=== PATIENT | female | born 1955 | race Caucasian/White ===

== ENCOUNTER 2024-09-01 09:07 | Outpatient (AMB) | payer MEDICARE, OTHER, SELFPAY ==
[2024-09-01 09:09] VITALS: BP 122/82; PULSE 111; TEMP 36.4; O2SAT 98
--- NOTE | 2024-09-01 09:09 | AM.OFFWIN_ITS ---
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 Tobacco Use Status: Never used Tobacco Allergies codeine Allergy (Mild, Verified 09/01/24 09:39) Rash ibuprofen Allergy (Mild, Verified 09/01/24 09:39) Rash sulfamethoxazole [From Bactrim] Allergy (Mild, Verified 09/01/24 09:39) Rash trimethoprim [From Bactrim] Allergy (Mild, Verified 09/01/24 09:39) Rash Medication List - Last Reconciled 09/01/24 by MESFIN Cardenas-BC estradiol (Yuvafem) 10 mcg vaginal 2XW folic acid 1 mg PO DAILY levothyroxine 112 mcg PO DAILY methotrexate sodium mg PO omeprazole 20 mg PO DAILY Do you need a note to return to daycare/school/sports/work: No HPI HPI Comments History of Present Illness Details History of Present Illness - The patient is a 68-year-old female pr esenting with suspected urinary tract infection. - Symptoms initiated at 5:00 AM on the d ay of presentation, with burning, frequency, and urgency during urination. - Reports past episodes of urinary tract infections, last documented several years ago. - Denies hematuria, discharge, nausea, v omiting, or fever; reports minor chills. - No pertinent back or abdominal pain no ronna, aside from mild lower abdominal discomfort. - Prior medical event of kidney stone 11 years prior. Review of Systems - : Reports burning sensation, increas ed frequency, and urgency in urination. - General: Denies fever, but reports sli ght chills. - GI: Denies nausea, vomiting. - Musculoskeletal: Denies back pain. Physical Exam General: Well developed, well nourished, in no acute distress. Appears stated age. Head: Normocephalic, atraumatic. Eyes: Pupils are equal, round and reactive to light and accommodation. Conjunctivae are clear. Lungs: Clear to auscultation bilaterally. No rales, rhonchi or wheeze noted. Good air flow in all andrews. Heart: Regular rate and rhythm. Heart rate is elevated, in the 90s. No murmurs, click, rubs or gallops are noted. Abdomen: The abdomen is soft, with no masses or organomegaly noted. + suprapubic tenderness. No CVAT bilat Extremities: No clubbing, cyanosis nor edema is noted. Psych: Mood and affect appropriate. Results - Urinalysis: Positive for leukocytes, p ositive for blood, negative for nitrites, negative for glucose. - Urinalysis: Positive for leukocytes, positive for blood, negative for nitrites, negative for glucose. Urine sent for culture. Discussion Notes During the visit, I discussed the diagnosis of a urinary tract infection with the patient, based on her symptoms and urinalysis results indicating leukocytes and blood presence. I recommended initiating treatment with cefuroxime, an antibiotic taken twice daily for five days. I emphasized the importance of completing the full course of antibiotics even if symptoms improve after the first doses. We discussed side effects of the medication, particularly gastrointestinal upset, which can be mitigated by taking the medication with food. Should her symptoms worsen or if she experiences adverse effects such as vomiting, I advised immediate reevaluation. I also offered pyridium as an adjunct for symptomatic relief while the antibiotics take effect, and informed the patient about the possibility of orange urine discoloration should she use it. Consent for treatment was obtained, and I reassured her that if our office does not contact her post urine culture, the prescribed antibiotic is appropriate. Follow-up instructions and hydration guidance were provided to address her symptoms effectively. Assessment and Plan 1. Urinary Tract Infection - Prescribed cefuroxime 500 mg BID for 5 days. - Emphasized need to complete antibiotic therapy. - Recommended pyridium for discomfort re lief. - Advised hydration and rest. - Planned for reevaluation if symptoms w orsen or there's intolerance to medication. *of note, Bennett let me know there was not enough urine for Culture after pt left. Plan to call her and ask her to go to lab to submit. Patient Instructions - Take cefuroxime as prescribed, 500 mg twice a day, after meals. - Drink plenty of water to stay hydrated . - Rest as much as possible to aid recove ry. - Finish all antibiotics even if you fee l better. - Use pyridium for pain; your urine may turn orange. - Return to us if you vomit or symptoms do not improve. - Follow up if no contact is made regard ing urine culture. Consent Patient was informed and verbally consented to the use of an ambient scribe for clinic note documentation during this visit. [facility] Social History Patient Tobacco Use Status: Never used Tobacco Physical Exam Vital Signs: Last Vital Signs Temp 97.5 F 09/01/24 09:09 Pulse 111 H 09/01/24 09:09 BP 122/82 09/01/24 09:09 Pulse Ox 98 09/01/24 09:09 Oxygen Delivery Method Room Air 09/01/24 09:09 BMI result Body Mass Index 30.0 Results AMB Urinalysis, Automated UA Leukoctes 500 Miracle/uL Last Edit by Marck Gibson CMA on 09/01/24 09:3 1 UA Nitrite Negative Last Edit by Marck Gibson CMA on 09/01/24 09:31 UA Urobilinogen 0.2 mg/dL Last Edit by Marck Gibson CMA on 09/01/24 09 :31 UA Protein 0 mg/dL Last Edit by Marck Gibson CMA on 09/01/24 09:31 UA pH 6.0 Last Edit by Marck Gibson CMA on 09/01/24 09:31 UA Blood 200 Micah/uL Last Edit by Marck Gibson CMA on 09/01/24 09:31 UA Specific [place] 1.010 Last Edit by Marck Gibson CMA on 09/01/24 09:31 UA Ketone Negative Last Edit by Marck Gibson CMA on 09/01/24 09:31 UA Bilirubin 0 mg/dL Last Edit by Marck Gibson CMA on 09/01/24 09:31 UA Glucose 0 mg/dL Last Edit by Marck Gibson CMA on 09/01/24 09:31 Results Reviewed Results Reviewed: Laboratory Last Values Urine pH (Auto) 6.0 09/01/24 09:30 Specific [place] (Auto) 1.010 09/01/24 09:30 Urine Protein (Auto) 0 mg/dL 09/01/24 09:30 Glucose (UA)(Auto) 0 mg/dL 09/01/24 09:30 Urine Ketones (Auto) Negative 09/01/24 09:30 Urine Blood (Auto) 200 Micah/uL 09/01/24 09:30 Urine Nitrite (Auto) Negative 09/01/24 09:30 Urine Bilirubin (Auto) 0 mg/dL 09/01/24 09:30 Urine Urobilinogen (Auto) 0.2 mg/dL 09/01/24 09:30 Leukocyte Esterase (Auto) 500 Miracle/uL 09/01/24 09:30 Assessment & Plan Assessment & Plan (1) UTI (urinary tract infection): Code(s): N39.0 - Urinary tract infection, site not specified Qualifiers: Urinary tract infection type: acute cystitis Hematuria presence: with hematuria Qualified Code(s): N30.01 - Acute cystitis with hematuria Plan . Orders: Orders AMB Urinalysis Automated Today Z13.9 - Encounter for screening, unspecified Urine Culture Today N39.0 - Urinary tract infection, site not specified Medications: New cefuroxime axetil 500 mg PO BID 10 tabs 0RF phenazopyridine (Pyridium) 100 mg PO TID PRN 6 tabs 0RF pain Patient Instructions: What is the urinary tract? This is the group of organs in the body that handle urine (figure 1). It includes the: ?Kidneys ? These are 2 monzon-shaped organs that filter the blood to make urine. ?Bladder ? This is a balloon-shaped organ that stores urine. ?Ureters ? These are 2 tubes that carry urine from the kidneys to the bladder. ?Urethra ? This is the tube that carries urine from the bladder to the outside of the body. What are urinary tract infections? Urinary tract infections, or UTIs, are infections that affect either the bladder or the kidneys: ?Bladder infections are more common than kidney infections. They happen when bacteria get into the urethra and travel up into the bladder. The medical term for bladder infection is cystitis. Most of the time, when people talk about a UTI, they mean a bladder infection. ?Kidney infections happen when the bacteria travel even higher, up into the kidneys. The medical term for kidney infection is pyelonephritis. This is more serious than a bladder infection, and can lead to other serious problems if it is not treated properly. Both bladder and kidney infections are more common in females than males. The risk of UTIs is also higher in people who have a urinary catheter. A catheter is a thin, flexible tube that drains urine from the bladder. It might be used in people who are in the hospital and cannot urinate the normal way. What are the symptoms of a bladder infection? The symptoms include: ?Pain or a burning feeling when you urinate ?The need to urinate often ?The need to urinate suddenly or in a hurry ?Blood in the urine What are the symptoms of a kidney infection? The symptoms of a kidney infection can include the same urinary symptoms that happen with a bladder infection. In addition, kidney infections can cause: ?Fever ?Back pain ?Nausea or vomiting Will I need tests? Maybe. If you think that you might have a UTI, call your doctor or nurse. Sometimes, they can tell if you have one just by learning about your symptoms. Your doctor or nurse might do a simple urine test in the office. They might also do a more involved urine test to check for bacteria. How are UTIs treated? Most are treated with antibiotic pills. These work by killing the germs that cause the infection. ?If you have a bladder infection, you will probably need to take antibiotics for 3 to 7 days. ?If you have a kidney infection, you will probably need to take antibiotics for longer. Some people need to take them for 10 days. If you have a kidney infection, it's also possible that you will need to be treated in the hospital. Your symptoms should begin to improve within a day of starting antibiotics. But you should finish all of the antibiotic pills. Otherwise, the infection might come back. If needed, you can also take a medicine to numb your bladder. This medicine eases the pain caused by UTIs. It also reduces the need to urinate. What if I get bladder infections a lot? First, check with your doctor or nurse to make sure that you are really having bladder infections. The symptoms of bladder infection can be caused by other things. Your doctor or nurse will want to see if those problems might be causing your symptoms. If your doctor confirms that you are having repeated infections, there are things you can do to keep from getting more infections. These include: ?Drinking more fluid ? This can help prevent bladder infections. ?Vaginal estrogen ? If you have already been through menopause, your doctor might suggest this. Vaginal estrogen comes in a cream or a flexible ring that you put into your vagina. It can help prevent bladder infections. Other things that might help: ?Avoid spermicides (sperm-killing creams or gels) ? Spermicide is a form of control. It seems to increase the risk of bladder infections in some females, especially when used with a diaphragm. If you use spermicide and get a lot of bladder infections, you might want to try switching to a different form of control. ?Urinate right after sex ? Some doctors think this helps, because it helps flush out germs that might get into the bladder during sex. There is no proof it works, but it also cannot hurt. If you get a lot of bladder infections, and the above methods have not helped, talk to your doctor about what else you can do to prevent infection. Taking an antibiotic every day or after sex can help prevent bladder infections. But long- term use of antibiotics has downsides, so doctors usually suggest trying other things first, such as: ?Methenamine (brand name: Hiprex) ? This is a pill you take every day. It changes your urine to make it harder for bacteria to grow. It works almost as well as antibiotics to prevent bladder infections. ?Cranberry juice or other cranberry products ? These might help prevent bladder infections. But doctors do not know what the best dose is. Can other products prevent bladder infections? People often wonder about other natural products that claim to help prevent bladder infections. These include probiotic pills, vitamin C, and D-mannose. There is not good evidence that these things work. However, there is also no clear evidence that they are harmful. If you have questions about these or other products, talk with your doctor or nurse. Coding Level of Care Code Est Pt Level 3 (55073) Diagnoses Acute cystitis with hematuria N30.01 Urinary tract infection type: acute cystitis Hematuria presence: with hematuria
--- OUTSIDE RECORDS SUMMARY | 2024-09-01 09:09 | XMS_ITS | Encounter Summary ---
Author Organization [facility] Address [address] [place] [address] Care Team Providers Care Instrument Mechanic Name Role Phone Diogo Gray Primary Care Provider [phone] Encounter Details Date Type Department Care Team (Late st Contact Info) Description 07/21/2024 Results Follow-Up [facility] [address] [place] [id number] Coastal/Harbor Defense Officer: Jose Luis Harris MD [address] [place] [address] [phone] Social History Tobacco Use Types Packs/Day Years Used Date Smoking Tobacco: Never Passive Smoke Exposure: Past Smokeless Tobacco: Never Alcohol Use Standard Drinks/Week Comments Not Currently 0 (1 standard drink = 0.6 oz pur e alcohol) Comments Unknown Sex and Gender Information Value Date Recorded Sex Assigned at Female 06/20/2021 11:14 AM EDT Legal Sex Female 10:50 AM EDT Gender Identity Female 06/20/2021 11:14 AM EDT Sexual Orientation Choose not to disclose 2021 11:14 AM EDT documented as of this encounter Plan of Treatment Upcoming Encounters Date Type Department Care Team (Late st Contact Info) Description 01/29/2025 4:00 PM EST Follow-Up [facility] [address] [place] [address] [phone] Coastal/Harbor Defense Officer: Jose Luis Harirs MD [address] [place] [address] [phone] documented as of this encounter Visit Diagnoses Not on filedocumented in this encounter Care Teams Instrument Mechanic Relationship Specialty Start Date End Date Diogo Gray [address] [place] [address] PCP - General Internal Medicine 09/10/20 documented as of this encounter
[2024-09-01 09:46] VITALS: PULSE 90
== END 2024-09-01 09:56 | disposition home or self-care (01) ==
PROVIDERS: Visit Provider Nurse Practitioner Family
DX: Z13.9 Encounter for screening, unspecified (principal); N30.01 Acute cystitis with hematuria

== ENCOUNTER 2024-09-01 09:07 | Outpatient (REF) | payer MEDICARE, OTHER, SELFPAY | END 2024-09-01 09:08 | disposition home or self-care (01) | LOC: HO.HMGCLDS 09:07 | PROVIDERS: Visit Provider Nurse Practitioner Family | DX: N39.0 Urinary tract infection, site not specified (principal); Z13.9 Encounter for screening, unspecified | CPT/HCPCS: 81003; 87086; 87147; 99212 ==

== ENCOUNTER 2024-09-10 14:17 | Outpatient (AMB) | payer MEDICARE, OTHER, SELFPAY ==
[2024-09-10 14:29] VITALS: BP 124/72; PULSE 88; TEMP 36.8; O2SAT 95; BMI 30.3
--- NOTE | 2024-09-10 14:29 | MHC.OFFWIV ---
Intake Vital Signs 09/10/24 14:29 Height 5 ft 5 in Weight 182 lb 2 oz BMI 30.3 BP 124/72 Blood Pressure Location Rt brachial Position Sitting Pulse 88 Pulse Source Pulse Oximeter Temp 98.2 F Temp Source Oral Pulse Oximetry (%) 95 Oxygen Delivery Method Room Air Intake Visit Reasons: EP pain on LT eye Patient Tobacco Use Status: Never used Tobacco Pharmacy Technician Trainee Required: No Allergies codeine Allergy (Mild, Verified 09/10/24 14:34) Rash ibuprofen Allergy (Mild, Verified 09/10/24 14:34) Rash sulfamethoxazole (From Bactrim) Allergy (Mild, Verified 09/10/24 14:34) Rash trimethoprim (From Bactrim) Allergy (Mild, Verified 09/10/24 14:34) Rash HPI HPI Comments History of Present Illness Details 68 y/o Female patient who presents to the walk in clinic with c/o Left eye pain and lightsensitivity. Pt reports that earlier today she was getting into her car, when something flew into her left eye. Describes the pain as sharp like pins and needles located in the back of the eye. Pt has an eye doctor and she will be calling them today. [facility] Medical History (Updated 09/10/24 @ 15:31 by Mary Hawkins NP) Conjunctiva disorder Social History Patient Tobacco Use Status: Never used Tobacco Review of Systems Const All systems reviewed & are unremarkable except as noted in HPI and below Physical Exam Vital Signs: Last Vital Signs Temp 98.2 F 09/10/24 14:29 Pulse 88 09/10/24 14:29 BP 124/72 09/10/24 14:29 Pulse Ox 95 09/10/24 14:29 Oxygen Delivery Method Room Air 09/10/24 14:29 BMI result Body Mass Index 30.3 Const General: no acute distress Nutritional Appearance: obese Orientation/consciousness: patient oriented x3 Eyes Periorbital: periorbital findings normal Eyelids: Yes eyelids normal Conjunctivae: conjunctival abnormal left conjunctival injection diffuse Corneas: fluorescein used (No scratches or abrasion seen ) Pupils: Equal, round and reactive pupils present EOM: EOMs intact bilaterally Neuro General: patient oriented x3, gait normal and moves all extremities Cranial nerves: Yes Equal, round and reactive pupils present Psych Speech and movement: Normal speech and movement present Assessment & Plan Assessment & Plan (1) Conjunctiva disorder: Code(s): H11.9 - Unspecified disorder of conjunctiva Plan: Fluorescein was used - abrasion not seen. Ordered Topical Abx Advised to call Eye doctor Medications: New erythromycin 0.5 inches ophthalmic (eye) BID 3.5 grams 0RF H11.9 - Unspecified disorder of conjunctiva Coding Level of Care Code Est Pt Level 4 (24273) Diagnoses Conjunctiva disorder H11.9 Time Spent (min) 20
--- OUTSIDE RECORDS SUMMARY | 2024-09-10 15:49 | XMS_ITS | Encounter Summary ---
Author Organization [facility] Address [address] [place] [address] Care Team Providers Care Lens Coater Name Role Phone Diogo Gray Primary Care Provider [phone] Encounter Details Date Type Department Care Team (Late st Contact Info) Description 07/21/2024 Results Follow-Up [facility]ology [facility] [address] [place] [id number] Laborer Cutting Tool: Jose Luis Harris MD [address] [place] [phone] Social History Tobacco Use Types Packs/Day Years [...] Info) Description 01/29/2025 4:00 PM EST Follow-Up [facility] [address] [place] [address] [phone] Laborer Cutting Tool: Jose Luis Harris MD [address] [place] [address] [phone] documented as of this encounter Visit Diagnoses Not on filedocumented in this encounter Care Teams Lens Coater Relationship Specialty Start Date End Date Diogo Gray [address] [place] [address] PCP - General Internal Medicine 09/10/20 documented as of this encounter
== END 2024-09-10 15:04 | disposition home or self-care (01) ==
PROVIDERS: Visit Provider Nurse Practitioner Family
DX: H11.9 Unspecified disorder of conjunctiva (principal)

== ENCOUNTER → 2024-09-10 14:17 | Outpatient (BNVA) | payer MEDICARE, OTHER, SELFPAY | PROVIDERS: Visit Provider Nurse Practitioner Family | DX: H11.9 Unspecified disorder of conjunctiva (principal) | CPT/HCPCS: 99212 ==